=== PATIENT | male | born 1935 | race Caucasian/White ===

== ENCOUNTER 2019-11-30 12:18 | Emergency (ER) | payer MEDICARE ==
[~2019-11-30] VITALS: Ht 177.8 cm; Wt 81.6 kg
== END 2019-11-30 15:14 | disposition home or self-care (01) ==
LOC: ED 12:18
DX: S01.81XA Laceration without foreign body of other part of head, initial encounter (principal); I10 Essential (primary) hypertension; W22.8XXA Striking against or struck by other objects, initial encounter; Y93.89 Activity, other specified; Y92.89 Other specified places as the place of occurrence of the external cause; Y99.8 Other external cause status